=== PATIENT | female | born 1955 | race Caucasian/White ===

== ENCOUNTER 2018-01-13 00:03 | Emergency (ER) | payer OTHER ==
[2018-01-13] MEDS ORDERED: DIPHENHYDRAMINE 50 MG INJ IV ×2 (00:30)
[2018-01-13] MEDS ORDERED: METHYLPREDNISOLONE 125 MG INJ IV ×2 (00:30)
[2018-01-13] MEDS ORDERED: FAMOTIDINE 20 MG INJ IV ×2 (00:30)
[2018-01-13] MEDS: LEVALBUTEROL (NEB) 1.25 MG/0.5 ML AMP HHN (00:45)
== END 2018-01-13 03:25 | disposition home or self-care (01) ==
LOC: E/R 00:03
DX: H02.841 Edema of right upper eyelid (principal); R06.02 Shortness of breath; I10 Essential (primary) hypertension; H02.844 Edema of left upper eyelid; Z91.018 Allergy to other foods
CPT/HCPCS: 94664; 99283-25